=== PATIENT | female | born 1980 | race Caucasian/White ===

== ENCOUNTER → 2020-03-10 12:42 | Outpatient (CLI) | payer OTHER, SELFPAY ==
--- NOTE | ~2020-03-10 | US_ITS ---
EXAMINATION: US pelvic complete w TV DATE: 03/10/2020 13:16 INDICATION: Pelvic and perineal pain TECHNIQUE: Multiple transabdominal and endovaginal sonographic images of the pelvis were obtained. COMPARISON: None. FINDINGS: The uterus is surgically absent. The left ovary is not visualized however no left adnexal a bnormality is seen. The right ovary measures 1.9 x 1.1 x 2.2 cm. There is normal vascular flow in the right ovary. There is no free fluid in the pelvis. IMPRESSION: 1. No sonographic correlate for the patient's symptoms. Reviewed, dictated and finalized at location A. [facility]ER
== END ==
DX: R10.2 Pelvic and perineal pain (principal)
CPT/HCPCS: 76830; 76856

== ENCOUNTER 2022-07-19 12:50 | Emergency (ER) | payer OTHER, SELFPAY ==
--- NOTE | 2022-07-19 13:12 | ED.ARRPALP ---
HPI - Arrhythmia/Palpitations General Chief Complaint: Arrhythmia/Palpitations Stated Complaint: irregular heart rate, chest pain,shortness of diaz Time Seen by Provider: 07/19/22 13:12 Source: patient Mode of arrival: ambulatory Limitations: no limitations History of Present Illness HPI narrative: 42-year-old female presents with complaint of palpitations, chest pain for the last 10 days. Reports the palpitations have been intermittent. Reports over the last 2 days she is getting palpitations more often and they last longer than they had before. Also reports that today she is feeling short of breath with exertion. No chest pain at this time. Reports only recent changes taking a new migraine medication. No complaints of swelling to lower extremities. No URI symptoms. All systems reviewed and negative except as noted above. Related Data Home Medications Medication Instructions Recorded Confirmed aripiprazole 2 mg tablet 2 mg PO DAILY 07/19/22 07/19/22 buprenorphine 2 mg-naloxone 0.5 mg 0.25 film sublingual DAILY 07/19/22 07/19/22 sublingual film erenumab-aooe 70 mg/mL 70 mg subcut MONTHLY migraines 07/19/22 07/19/22 subcutaneous auto-injector (Aimovig Autoinjector) modafinil 200 mg tablet 200 mg PO DAILY 07/19/22 07/19/22 sulfamethoxazole 400 1 tablet PO PRN PRN Urinary 07/19/22 07/19/22 mg-trimethoprim 80 mg tablet Retention ubrogepant 50 mg tablet (Ubrelvy) 50 mg PO USEASDIRECTD 07/19/22 07/19/22 ustekinumab 45 mg/0.5 mL 45 mg subcut USEASDIRECTD 07/19/22 07/19/22 subcutaneous syringe (Stelara) Allergies Allergy/AdvReac Type Severity Reaction Status Date / Time pork derived (porcine) AdvReac Vomiting Verified 07/19/22 14:08 Review of Systems Review of Systems: CONSTITUTIONAL: Denies fever, chills, or sweats. EYES: Denies visual changes, redness, or discharge. ENT: Denies rhinorrhea, congestion, sore throat, or otalgia. CARDIOVASCULAR: Reports intermittent chest pain, palpitations. Denies edema. RESPIRATORY: Denies cough. Reports dyspnea on exertion GASTROINTESTINAL: Denies abdominal pain, nausea, vomiting, or diarrhea. GENITOURINARY: Denies dysuria or hematuria. SKIN: Denies rash or itching. MUSCULOSKELETAL: Denies back pain, joint pain, or myalgia. NEUROLOGIC: Denies headache, numbness, or weakness. PSYCHIATRIC: Denies anxiety or depression. All other systems reviewed are negative, except as documented in HPI. PMFSH Comments At time of signature, agree with nursing past medical, surgical, social and family history. There is no relevant family history pertinent to the presenting complaint. Exam Narrative: GENERAL: This is a well-nourished, well-developed patient, in no apparent distress. HEAD: normocephalic, atraumatic. EYES: PERRL. Sclera clear/white. Vision is grossly intact. EARS: External ears normal NOSE: External nose normal NECK: Neck supple, non-tender without lymphadenopathy, masses or thyromegaly. CARDIOVASCULAR: Regular rate and rhythm without murmurs, gallops, or rubs. RESPIRATORY: Clear to auscultation. Breath sounds equal bilaterally. No wheezes, rales, or rhonchi. SKIN: warm, Dry, intact with no suspicious lesions or rash, good texture and turgor. NEURO: awake, alert, and oriented to person, place and time. There were no obvious focal neurologic abnormalities. EXTREMITIES: No joint tenderness, effusion, or edema noted. Course Course Level of Care: Express Care Visit Vital Signs Vital signs: Vital Signs Temperature 36.4 C 07/19/22 13:17 Pulse Rate 103 H 07/19/22 13:17 Respiratory Rate 16 07/19/22 13:17 Blood Pressure 132/100 H 07/19/22 13:17 Pulse Oximetry 100 07/19/22 13:17 Temperature 36.4 C 07/19/22 13:19 Pulse Rate 103 H 07/19/22 13:19 Respiratory Rate 16 07/19/22 13:19 Blood Pressure 132/100 H 07/19/22 13:19 Pulse Oximetry 100 07/19/22 13:19 Reviewed Transfer Transfered to: [facility]: Other (Private car, no ch
--- NOTE | 2022-07-19 13:13 | ECG_ITS ---
Measurements Intervals [place] Rate: 93 P: 68 VT: 161 QRS: 62 QRSD: 96 T: 26 QT: 386 QTc: 482 Interpretive Statements SINUS RHYTHM INCOMPLETE RIGHT BUNDLE BRANCH BLOCK [90+ ms QRS DURATION, TERMINAL R IN V1/V2, 40+ ms S IN I/aVL/V4/V5/V6] NONSPECIFIC T-WAVE ABNORMALITY NO PREVIOUS ECG AVAILABLE FOR COMPARISON Electronically Signed On 07-19-2022 18:34:26 CDT by Jorge Garcia M.D.
[2022-07-19 13:17] VITALS: BP 132/100; PULSE 103; RESP 16; TEMP 36.4; O2SAT 100
[2022-07-19 13:19] VITALS: BP 132/100; PULSE 103; RESP 16; TEMP 36.4; O2SAT 100
== END 2022-07-19 13:25 | disposition short-term general hospital (02) ==
PROVIDERS: Emergency Provider Nurse Practitioner Family
DX: R00.2 Palpitations (principal); I45.10 Unspecified right bundle-branch block; N80.9 Endometriosis, unspecified; F32.A Depression, unspecified
CPT/HCPCS: 93005; 99213; G0463

== ENCOUNTER 2022-07-19 13:58 | Emergency (ER) | payer OTHER, SELFPAY ==
--- NOTE | ~2022-07-19 | XR_ITS ---
Clinical Indication: Heart palpitations PA and lateral views of the chest: Comparison: None Findings: The lungs are clear, without evidence of focal consolidation or pleural effusion. Cardiome diastinal silhouette is within normal limits. Bones and soft tissues are unremarkable. Impression: Normal chest. Reviewed, dictated and finalized at location . Impression: Normal chest.
[2022-07-19 14:01] VITALS: BP 126/82; PULSE 90; RESP 16; TEMP 36.3; O2SAT 99
--- NOTE | 2022-07-19 14:10 | ECG_ITS ---
Measurements Intervals [place] Rate: 86 P: 67 [place]: 159 QRS: 62 QRSD: 93 T: 51 QT: 368 QTc: 440 Interpretive Statements SINUS RHYTHM POSSIBLE LEFT ATRIAL ENLARGEMENT [-0.1mV P WAVE IN V1/V2] INCOMPLETE RIGHT BUNDLE BRANCH BLOCK NONSPECIFIC ST AND T-WAVE ABNORMALITY COMPARED TO ECG 07/19/2022 13:09:14 NO SIGNIFICANT CHANGES Electronically Signed On 07-19-2022 18:35:53 CDT by Jorge Garcia M.D.
[2022-07-19 14:38] LABS: Basophils Absolute Auto 0.1 K/mm3 (0.0-0.1); Basophils Percent Auto 0.7 % (0.2-1.2); Eosinophils Absolute Auto 0.3 K/mm3 (0-0.3); Eosinophils Percent Auto 3.4 % (0-4.4); Hematocrit 36.3 % (37.0-47.0); Immature Granulocyte Absolute 0.01 K/mm3 (0.00-0.031); Immature Granulocyte Percent A 0.1 % (0-0.5); Lymphocytes Absolute Auto 3.24 K/mm3 (0.9-3.2); Lymphocytes Percent Auto 44.4 % (18.3-44.2); Mean Corpuscular HGB Conc 33.1 g/dl (32-36); Mean Corpuscular Hemoglobin 29.9 pg (26-34); Mean Corpuscular Volume 90.3 fl (80-100); Monocytes Absolute Auto 0.4 K/mm3 (0.1-0.6); Monocytes Percent Auto 5.2 % (2.6-8.5); Neutrophils Absolute Auto 3.4 K/mm3 (1.3-6.7); Neutrophils Percent Auto 46.2 % (45.5-73.1); Platelet Count Result 229 k/mm3 (150-375); Red Blood Count 4.02 M/mm3 (4.2-5.4); White Blood Count 7.3 K/mm3 (4.5-10.0)
[2022-07-19 14:43] LABS: Alanine Aminotransferase 17 U/L (6-35); Albumin Level 4.4 g/dL (3.5-5.1); Alkaline Phosphatase 52 U/L (38-126); Anion Gap 6 mmol/L (8-16); Aspartate Amino Transferase 25 U/L (14-36); Bilirubin,Total 0.5 mg/dL (0.2-1.3); Blood Urea Nitrogen 13 mg/dL (7-17); Calcium 8.6 mg/dL (8.4-10.2); Carbon Dioxide 28 mmol/L (22-30); Chloride 102 mmol/L (98-107); Estimated CRCL calculation 90 ml/min; Estimated Glomerular Filt Rate > 60; Glucose 93 mg/dL (65-110); Lipase 93 U/L (23-300); Potassium 3.4 mmol/L (3.4-5.0); Sodium 136 mmol/L (137-145)
[2022-07-19 14:53] LABS: Prothrombin Time 12.3 Seconds (11.1-14.7)
[2022-07-19 14:54] LABS: Partial Thromboplastin Time 27.6 SECONDS (22.3-36.8)
[2022-07-19 14:55] LABS: Troponin I < 0.012 ng/mL (0.000-0.034)
[2022-07-19 17:40] VITALS: BP 120/86; PULSE 75; RESP 16; TEMP 36.1; O2SAT 100
--- NOTE | 2022-07-19 18:35 | PC.NURSE ---
three hour troponin drawn and sent. Pt updated on results of testing, awaiting bed at this time.
[2022-07-19 19:07] LABS: Troponin I < 0.012 ng/mL (0.000-0.034)
--- NOTE | 2022-07-19 19:59 | ED.ARRPALP ---
HPI - Arrhythmia/Palpitations General Chief Complaint: Arrhythmia/Palpitations Stated Complaint: arrhythmias from [facility] Time Seen by Provider: 07/19/22 19:56 History of Present Illness HPI narrative: Patient is a 42-year-old female here for evaluation of palpitations for the past 2 weeks. Patient states that she feels a squeezing and thumping sensation in her chest about every minute or so. She denies any significant pain. The palpitations come on randomly, not associated with exertion. No syncope, cough, congestion, shortness of breath, fevers or chills, upper respiratory infectious symptoms. She was referred from urgent care; EKG revealed incomplete right bundle. States that she was hospitalized 6 years ago for tachycardia, was previously on metoprolol was taken off due to bradycardia. States that symptoms today feel different than that episode. Related Data Home Medications Medication Instructions Recorded Confirmed aripiprazole 2 mg tablet 2 mg PO DAILY 07/19/22 07/19/22 buprenorphine 2 mg-naloxone 0.5 mg 0.25 film sublingual DAILY 07/19/22 07/19/22 sublingual film erenumab-aooe 70 mg/mL 70 mg subcut MONTHLY migraines 07/19/22 07/19/22 subcutaneous auto-injector (Aimovig Autoinjector) modafinil 200 mg tablet 200 mg PO DAILY 07/19/22 07/19/22 sulfamethoxazole 400 1 tablet PO PRN PRN Urinary 07/19/22 07/19/22 mg-trimethoprim 80 mg tablet Retention ubrogepant 50 mg tablet (Ubrelvy) 50 mg PO USEASDIRECTD 07/19/22 07/19/22 ustekinumab 45 mg/0.5 mL 45 mg subcut USEASDIRECTD 07/19/22 07/19/22 subcutaneous syringe (Stelara) Allergies Allergy/AdvReac Type Severity Reaction Status Date / Time pork derived (porcine) AdvReac Vomiting Verified 07/19/22 14:08 decongestants AdvReac Palpitation Uncoded 07/19/22 19:57 s Review of Systems Review of Systems: Gen.: Denies fevers or chills Eyes: Denies eye pain or visual change ENT: Denies congestion Respiratory: Denies shortness of breath CV: Reports palpitations GI: Denies abdominal pain nausea, emesis or diarrhea denies burning, urgency, frequency or hematuria Musculoskeletal: Denies back pain or muscle pain Neuro: Denies numbness, tingling, weakness or focal weakness Skin: Denies rash Except as documented, all other systems reviewed and negative Exam Narrative: APPEARANCE: Well appearing, no pain in distress, well-nourished. Head: Normocephalic and atraumatic. EYES: PERRLA/EOMI, conjunctivae clear NOSE: No nasal drainage EARS: External ear normal in appearance THROAT: Oropharynx is clear. Mucous membranes are moist. NECK: Supple. No adenopathy, no masses. RESPIRATORY: Airway patent, respirations nonlabored. Clear to auscultation bilaterally, no rales, rhonchi, wheezing. CARDIOVASCULAR: Regular rate and rhythm without murmurs, rubs, or gallops. ABDOMINAL: Normoactive bowel sounds. Soft, nontender, nondistended. No rebound tenderness or guarding. MUSCULOSKELETAL: Extremities are warm and well-perfused. Moves all extremities well. No edema. NEURO: Normal speech. No focal neurologic deficits. SKIN: Skin is warm and dry. No rashes. PSYCHIATRIC: Normal affect/mood. Course Vital Signs Vital signs: Vital Signs Temperature 97.3 F L 07/19/22 14:01 Pulse Rate 90 07/19/22 14:01 Respiratory Rate 16 07/19/22 14:01 Blood Pressure 126/82 07/19/22 14:01 Pulse Oximetry 99 07/19/22 14:01 Oxygen Delivery Room Air 07/19/22 14:01 Temperature 97 F L 07/19/22 17:40 Pulse Rate 79 07/19/22 22:36 Respiratory Rate 20 07/19/22 22:36 Blood Pressure 101/78 07/19/22 22:36 Pulse Oximetry 98 07/19/22 22:36 Oxygen Delivery Room Air 07/19/22 14:01 MDM - Arrhythmia/Palpitations MDM Narrative Medical decision making narrative: 42-year-old female here for evaluation of palpitations and chest tightness over the past several weeks, worse today. She is nontoxic in appearance and has normal vital signs. Heart lungs are clear to auscultatio
[2022-07-19] MEDS: ASPIRIN 81 MG CHEWABLE TABLET 324 MG PO (20:11)
[2022-07-19 20:39] LABS: D Dimer 0.36 ug/mL (<0.48)
[2022-07-19 20:47] LABS: Troponin I < 0.012 ng/mL (0.000-0.034)
[2022-07-19 21:07] VITALS: BP 108/80; PULSE 77; PULSE 80; RESP 15; O2SAT 100
[2022-07-19 22:36] VITALS: BP 101/78; PULSE 79; RESP 20; O2SAT 98
== END 2022-07-19 22:38 | disposition home or self-care (01) ==
PROVIDERS: Emergency Medicine; Emergency Provider Physician Assistant
DX: R00.2 Palpitations (principal); I45.10 Unspecified right bundle-branch block; R94.31 Abnormal electrocardiogram [ECG] [EKG]
CPT/HCPCS: 36415; 71046; 80053; 83690; 84443; 84484; 85025; 85380; 85610; 85730; 93005; 99284; A9270

== ENCOUNTER 2024-01-20 18:24 | Emergency (ER) | payer OTHER, SELFPAY ==
--- NOTE | ~2024-01-20 | XR_ITS ---
EXAMINATION: XR chest 2V DATE: 01/20/2024 18:48 INDICATION: Syncope TECHNIQUE: PA and lateral views of the chest were obtained. COMPARISON: Chest radiograph dated 07/19/2022 FINDINGS: Unchanged mild streaky lingular atelectasis/scarring at the anteromedial left lung base. No new airsp vladimir opacities, pulmonary edema, pleural effusion or pneumothorax. The cardiomediastinal silhouette is normal. Cholecystectomy clips in the right upper quadrant. Surgical clips at the left axilla. IMPRESSION: 1. No acute cardiopulmonary disease. Reviewed, dictated and finalized at location A.
--- NOTE | ~2024-01-20 | CT_ITS ---
EXAMINATION: CT brain wo con DATE: 01/20/2024 20:48 INDICATION: Loss of consciousness of indeterminate etiology TECHNIQUE: Computed tomography (CT) of the head was performed without intravenous contrast. Sagittal and coronal reconstructions were performed. The mA was adjusted according to patient size. Iterative reconstruction technique was employed. The dose-length product was 605.33 mGy-cm. COMPARISON: None FINDINGS: No acute intracranial hemorrhage, acute infarction or abnormal extra axial fluid collection. Ventricl es are normal and symmetric. No mass/mass effect. The orbits, paranasal sinuses and mastoid air cells are normal. IMPRESSION: 1. Normal head CT. Reviewed, dictated and finalized at location A. IMPRESSION: 1. Normal head CT.
[2024-01-20 18:27] VITALS: BP 124/96; PULSE 99; RESP 18; TEMP 36.6; O2SAT 100
--- NOTE | 2024-01-20 18:28 | ECG_ITS ---
Test Date: 2024-01-20 18:35:12 Measurements Intervals [place] Rate: 99 P: 66 [place]: 159 QRS: 64 QRSD: 93 T: 49 QT: 368 QTc: 473 Interpretive Statements SINUS RHYTHM INCOMPLETE RIGHT BUNDLE BRANCH BLOCK [90+ ms QRS DURATION, TERMINAL R IN V1/V2, 40+ ms S IN I/aVL/V4/V5/V6] NONSPECIFIC ST AND T-WAVE ABNORMALITY No previous ECG available for comparison Electronically Signed On 01-21-2024 09:39:40 CDT by Jorge Garcia M.D.
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
[2024-01-20 20:24] VITALS: PULSE 97
[2024-01-20 20:27] VITALS: BP 116/82; PULSE 88; RESP 12; O2SAT 97
[2024-01-20 20:44] LABS: BEDSIDEPREGUCG Negative (Negative)
[2024-01-20] MEDS: SODIUM CHLORIDE 0.9% IV 1,000 ML 999 ML IV CONT (20:53)
[2024-01-20 21:11] LABS: Basophils Absolute Auto 0.1 K/mm3 (0.0-0.1); Eosinophils Absolute Auto 0.2 K/mm3 (0-0.3); Eosinophils Percent Auto 2.7 % (0-4.4); Hematocrit 35.5 % (37.0-47.0); Immature Granulocyte Absolute 0.01 K/mm3 (0.00-0.031); Immature Granulocyte Percent A 0.1 % (0-0.5); Lymphocytes Absolute Auto 2.88 K/mm3 (0.9-3.2); Lymphocytes Percent Auto 37.6 % (18.3-44.2); Mean Corpuscular HGB Conc 33.8 g/dl (32-36); Mean Corpuscular Hemoglobin 29.9 pg (26-34); Mean Corpuscular Volume 88.5 fl (80-100); Mean Platelet Volume 11.3 fl (7.4-10.4); Monocytes Absolute Auto 0.5 K/mm3 (0.1-0.6); Neutrophils Percent Auto 52.6 % (45.5-73.1); Platelet Count Result 261 k/mm3 (150-375); Red Blood Count 4.01 M/mm3 (4.2-5.4); Red Cell Distribution Width 12.4 % (11.5-14.5); White Blood Count 7.7 K/mm3 (4.5-10.0)
[2024-01-20 21:14] LABS: Add Urine Microscopic? NO; Appearance Urine Clear (Clear); Bilirubin Urine Negative (Negative); Blood Urine Negative (Negative); Color Urine Yellow (Yellow); Glucose Urine UA Negative (Negative); Ketones Urine Negative (Negative); Leukocyte Esterase Ur Negative LEU/UL (Negative); Nitrate Urine Negative (Negative); Protein Urine Negative (Negative); Specific Grav Ur 1.025 (1.001-1.035); Urobilinogen Urine 0.2 mg/dL (<2.0); pH Urine 5.5 (5.0-9.0)
[2024-01-20 21:24] LABS: Alanine Aminotransferase 17 U/L (6-35); Albumin Level 4.5 g/dL (3.5-5.1); Alkaline Phosphatase 68 U/L (38-126); Anion Gap 8 mmol/L (4-12); Aspartate Amino Transferase 21 U/L (14-36); Bilirubin,Total 0.4 mg/dL (0.2-1.3); Blood Urea Nitrogen 14 mg/dL (7-17); Calcium 9.4 mg/dL (8.4-10.2); Carbon Dioxide 28 mmol/L (22-30); Chloride 102 mmol/L (98-107); Estimated CRCL calculation 80 ml/min; Estimated Glomerular Filt Rate > 60; Glucose 95 mg/dL (65-110); Magnesium 1.8 mg/dL (1.6-2.3); Potassium 3.6 mmol/L (3.4-5.0); Sodium 138 mmol/L (137-145)
[2024-01-20 21:34] LABS: Barbiturate Screen Urine Negative (Negative); Benzodiazepines Screen Urine Negative (Negative)
[2024-01-20 21:35] LABS: Cannabinoid Screen Urine Negative (Negative); Cocaine Screen Urine Negative (Negative); Methadone Screen Urine Negative (Negative); Opiate Screen Urine Negative (Negative); Phencyclidine Screen Urine Negative (Negative)
[2024-01-20 22:12] LABS: Amphetamine Screen Urine Positive (Negative)
[2024-01-20 22:20] VITALS: BP 121/78; PULSE 68; RESP 18; O2SAT 99
== END 2024-01-20 22:21 | disposition home or self-care (01) ==
PROVIDERS: Emergency Medicine; Registered Nurse; Emergency Provider Emergency Medicine
DX: R55 Syncope and collapse (principal); G47.419 Narcolepsy without cataplexy; Z79.69 Long term (current) use of other immunomodulators and immunosuppressants; Z79.899 Other long term (current) drug therapy; I45.10 Unspecified right bundle-branch block; R94.31 Abnormal electrocardiogram [ECG] [EKG]
CPT/HCPCS: 36415; 70450; 71046; 80053; 80307; 81003; 81025; 83735; 85025; 93005; 96360; 99284; J7030